=== PATIENT | male | born 1970 | race Caucasian/White ===

== ENCOUNTER 2019-08-12 16:36 | Emergency (ER) | payer MEDICAID ==
[~2019-08-12] VITALS: Ht 170.2 cm; Wt 74.8 kg
--- NOTE | 2019-08-12 16:50 | NUR ---
BIB [facility] with c/o S.I. Pt placed in room 2b, security scanned pt with metal wand detector for safety. Pt was placed in hospital gown, pt's belongings removed from room.
[2019-08-12 17:07] LABS: *BILIRUBIN,URIN NEGATIVE (NEGATIVE); *BLOOD, URINE NEGATIVE (NEGATIVE); *CLARITY,URINE CLEAR (CLEAR); *COLOR,URINE LIGHT YELLOW (YELLOW); *KETONES,URINE NEGATIVE (NEGATIVE); *UROBILINOGEN,URINE 0.2 E.U./dl (NORMAL); LEUKOCYTE ESTERASE ,URINE NEGATIVE (NEGATIVE); NITRITE, URINE NEGATIVE (NEGATIVE); UGLUCOSE NEGATIVE (NEGATIVE)
[2019-08-12 17:16] LABS: *AMPHETAMINE, URINE NEGATIVE (NEGATIVE); *BARBITURATE, URINE NEGATIVE (NEGATIVE); *CANNABINOID, URINE NEGATIVE (NEGATIVE); *COCCAINE, URINE NEGATIVE (NEGATIVE); *OPIATE, URINE NEGATIVE (NEGATIVE); *PHENCYCLIDINE SCREEN,URINE NEGATIVE (NEGATIVE)
[2019-08-12 17:18] LABS: BASOPHILS # (AUTO) 0.2 K/uL (0.0-8.0); BASOPHILS % (AUTO) 3.9 % (0.0-2.0); EOSINOPHILS # (AUTO) 0.1 K/uL (0.0-0.7); EOSINOPHILS % (AUTO) 2.2 % (0.0-7.0); HEMATOCRIT 34.6 % (36.7-47.1); HEMOGLOBIN 11.2 g/dL (12.5-16.3); LYMPHOCYTES # (AUTO) 2.5 K/uL (20.0-40.0); LYMPHOCYTES % (AUTO) 41.2 % (20.5-51.5); MEAN CORPUSCULAR HEMOGLOBIN 27.7 uug (23.8-33.4); MEAN CORPUSCULAR HGB CONC 32 g/dL (32.5-36.3); MEAN CORPUSCULAR VOLUME 85.6 fL (73.0-96.2); MONOCYTES # (AUTO) 0.3 K/uL (2.0-10.0); MONOCYTES % (AUTO) 4.8 % (0.0-11.0); NEUTROPHILS # (AUTO) 2.9 K/uL (1.8-8.9); NEUTROPHILS % (AUTO) 47.9 % (38.5-71.5); PLATELET COUNT (AUTO) 382 K/uL (152-348); RED BLOOD CELL COUNT(AUTO) 4.04 MIL/uL (4.06-5.63)
[2019-08-12 17:21] LABS: CARBON DIOXIDE 24 mmol/L (21-32); CHLORIDE 103 mmol/L (98-107); CREATININE 0.7 mg/dL (0.6-1.3); GLUCOSE 87 mg/dL (74-106); POTASSIUM 3.6 mmol/L (3.5-5.1); UREA NITROGEN, BLOOD 5 mg/dL (7-18)
[2019-08-12 17:28] LABS: ALANINE AMINOTRANSFERASE 69 U/L (16-63); ALKALINE PHOSPHATASE 72 U/L (50-136); ASPARTATE AMINOTRANSFERASE 69 U/L (15-37); BILIRUBIN,DIRECT 0.1 mg/dL (0.0-0.2); BILIRUBIN,TOTAL 0.2 mg/dL (0.2-1.0); TOTAL PROTEIN, SERUM 8.7 g/dL (6.4-8.2)
[2019-08-12 17:29] LABS: ACETAMINOPHEN < 2.0 ug/mL (10-30); ETHANOL 458 MG/DL (0-0)
--- NOTE | 2019-08-13 00:22 | NUR ---
Patient ambulated with steady gait to restroom, hydration provided at patient's request.
--- NOTE | 2019-08-13 01:10 | NUR ---
Patient is resting comfortably in bed with eyes closed.
--- NOTE | 2019-08-13 02:59 | NUR ---
Patient is resting comfortably in bed with eyes closed.
--- NOTE | 2019-08-13 07:03 | NUR ---
Report given to Matthew OVALLE.
--- NOTE | 2019-08-13 07:44 | NUR ---
Pt awake, A&Ox3, but unaware of why he was here. Pt denies SI, HI, AH, and VH. Pt c/o 06/04 lower ABD pain with slight nausea, states he has not been eating a lot lately due to lack of appitite. Pt ambulated to bathroom, steady gait.
--- NOTE | 2019-08-13 08:29 | NUR ---
Gave pt breakfast tray.
[2019-08-13] MEDS ORDERED: LORAZEPAM 0.5 MG TABLET PO ONE ×2 (09:30→09:45)
[2019-08-13] MEDS ORDERED: LORAZEPAM 0.5 MG TABLET ONE ×2 (09:37→09:40)
--- NOTE | 2019-08-13 09:43 | NUR ---
Pt had moderate shaking of arms/hands, pt. medicated. Gait okay. Gave pt d/c instructions, pt verbalized understanding.
[2019-08-13 09:46] VITALS: BP 148/87
== END 2019-08-13 09:48 | disposition home or self-care (01) ==
LOC: ER 16:37
DX: F32.9 Major depressive disorder, single episode, unspecified (principal); F10.129 Alcohol abuse with intoxication, unspecified; R45.851 Suicidal ideations; Y90.8 Blood alcohol level of 240 mg/100 ml or more
CPT/HCPCS: 36415 ×2; 71045; 80048; 80076; 80307; 81001; 85025; 93005; 99284; G0480 ×3; G0481; A4663